=== PATIENT | female | born 1975 | race Hispanic/Latino ===

== ENCOUNTER 2017-01-05 09:55 | Emergency (ER) | payer MEDICAID ==
[2017-01-05 09:56] VITALS: BMI 24.0
[2017-01-05 10:05] VITALS: BP 137/86; PULSE 87; RESP 20; TEMP 98.7; O2SAT 96
--- NOTE | 2017-01-05 10:24 | ED PDOC ---
Arrival/HPI - General Chief Complaint: Substance Abuse Time Seen by Provider: 01/05/17 10:16 Historian: Patient - History of Present Illness Narrative History of Present Illness (Text): 01/05/17 10:25 41yr old female presents today brought in by ambulance after police were concerned for heroin use. pt states she used heroin 8hours ago. denies recent use. denies headaches, dizziness, weakness, cp or sob. denies abdominal pain. no fever/chills. pt states she feels fine and doesnt need to be here. Time/Duration: Prior to Arrival Past Medical History - Provider Review Nursing Documentation Reviewed: Yes - Travel History Have you recently traveled outside [place] w/in the past 3 mons?: No - Infectious Disease Hx of Infectious Diseases: None - Tetanus Immunization Tetanus Immunization: Unknown - Cardiac Hx Cardiac Disorders: No Hx Hypertension: No - Pulmonary Hx Respiratory Disorders: No Hx Tuberculosis: No - Neurological Hx Seizures: No - HEENT Hx HEENT Disorder: No - Renal Hx Renal Disorder: No - Endocrine/Metabolic Hx Endocrine Disorders: No - Hematological/Oncological Hx Blood Disorders: Yes Hx Hepatitis C: Yes (HEP. C+) - Integumentary Hx Dermatological Disorder: Yes Other/Comment: multiple red pathces throughout her body. - Musculoskeletal/Rheumatological Hx Musculoskeletal Disorders: No Hx Falls: No - Gastrointestinal Hx Gastrointestinal Disorders: No - Genitourinary/Gynecological Hx Sexually Transmitted Diseases: No - Psychiatric Hx Psychophysiologic Disorder: Yes Hx Anxiety: Yes Hx Bipolar Disorder: Yes Hx Substance Use: Yes - Surgical History Hx Valve Replacement: No - Anesthesia Hx Anesthesia: Yes Hx Anesthesia Reactions: No Hx Malignant Hyperthermia: No Family/Social History - Physician Review Nursing Documentation Reviewed: Yes Family/Social History: Unknown Family HX Smoking Status: Heavy Smoker > 10 Cigarettes Daily Hx Alcohol Use: Yes Hx Substance Use: Yes Substance used: HEROIN, COCAINE, XANAX Allergies/Home Meds Allergies/Adverse Reactions: Allergies No Known Allergies Allergy (Verified 01/05/17 10:05) Home Medications: Home Meds Medication Instructions Recorded Confirmed Unobtainable 01/05/17 01/05/17 Review of Systems - Review of Systems Constitutional: absent: Fatigue, Fevers Respiratory: absent: SOB, Cough Cardiovascular: absent: Chest Pain, Palpitations Gastrointestinal: absent: Abdominal Pain, Nausea, Vomiting Musculoskeletal: absent: Arthralgias Skin: absent: Rash, Pruritis Neurological: absent: Headache, Dizziness Psychiatric: absent: Anxiety, Depression, Suicidal Ideation Physical Exam Vital Signs Reviewed: Yes Vital Signs Temp Pulse Resp BP Pulse Ox 01/05/17 09:56 98.7 F 87 20 137/86 96 Temperature: Afebrile Blood Pressure: Normal Pulse: Regular Respiratory Rate: Normal Appearance: Positive for: Well-Appearing, Non-Toxic, Comfortable Pain Distress: None Mental Status: Positive for: Alert and Oriented X 3 - Systems Exam Head: Present: Atraumatic Mouth: Present: Moist Mucous Membranes Neck: Present: Normal Range of Motion Respiratory/Chest: Present: Clear to Auscultation Cardiovascular: Present: Regular Rate and Rhythm Abdomen: No: Tenderness, Rebound, Guarding Upper Extremity: Present: Normal ROM Lower Extremity: Present: Normal ROM Neurological: Present: GCS=15, Speech Normal, Gait Normal Skin: Present: Warm, Dry, Rashes (multiple tract medrano noted on both arms without erythema, edema, or abscess) Psychiatric: Present: Alert, Oriented x 3 Medical Decision Making ED Course and Treatment: 01/05/17 10:21 pt brought in by police for concern for heroin use. pt alert oriented, ambulating with steady gait. no distress. refusing any testing/further evaluation. vitals stable. pt states she is going to the doctor today. denies any complaints. admits to using heroin 8 hours ago. Denies recent use. pt ambulating with steady gait; no distress. alert and oriented. no signs of intoxication. pt with hx of DM refusing fingerstick. Patient has been advised to not leave the emergency room but has decided to go AGAINST MEDICAL ADVICE. The patient possesses capacity to make decisions and has voiced understanding to all my warnings of potential worsening of the condition for which medical care was sought. I have discussed all known and potential risks and consequences to the patient leaving AGAINST MEDICAL ADVICE. Patient is leaving against medical advise. AMA form signed. witness by REYNALDO Delgado. case discussed with dr. denson. impression: opiate dependence return if you wish to continue your care. f/u with pmd Disposition/Present on Arrival - Present on Arrival Any Indicators Present on Arrival: No History of DVT/PE: No History of Uncontrolled Diabetes: No Urinary Catheter: No History of Decub. Ulcer: No History Surgical Site Infection Following: None - Disposition Have Diagnosis and Disposition been Completed?: Yes Diagnosis: Opiate dependence Disposition: AGAINST MEDICAL ADVICE Disposition Time: 10:21 Patient Plan: Other (AMA) Condition: FAIR Additional Instructions: return if you wish to continue your care Referrals: Sonia Byers, [Primary Care Provider] - Follow up with primary Forms: [employer] (Gambian)
== END 2017-01-05 10:28 | disposition left against medical advice (07) ==
LOC: ED 09:55
DX: F11.20 Opioid dependence, uncomplicated (principal)

== ENCOUNTER 2017-02-26 17:55 | Emergency (ER) | payer MEDICAID ==
[2017-02-26 18:08] VITALS: BP 126/84; PULSE 100; RESP 20; TEMP 98.8; O2SAT 99; BMI 25.0
--- NOTE | 2017-02-26 19:09 | ED PDOC ---
Arrival/HPI - General Chief Complaint: Psychiatric Evaluation Time Seen by Provider: 02/26/17 18:09 Historian: Patient - History of Present Illness Narrative History of Present Illness (Text): 02/26/17 19:06 42 yo F presents for psychiatric evaluation after having a verbal disagreement with her father, who then called the police on her. Patient reports no complaints at this time. Patient does admit that she was recently admitted to rehabilitation center for detox of narcotic abuse for 6 days and was recently discharged yesterday. Other psychiatric symptoms: (-) depression, (-) anxiety, ( -) hallucinations, (-) suicidal ideation, (-) homicidal ideation. Otherwise: (- ) trauma, (-) fever, (-)headache, (-) dyspnea, (-) vomiting. Past Medical History - Provider Review Nursing Documentation Reviewed: Yes - Infectious Disease Hx of Infectious Diseases: None - Tetanus Immunization Tetanus Immunization: Unknown - Cardiac Hx Cardiac Disorders: No Hx Hypertension: No - Pulmonary Hx Respiratory Disorders: No Hx Tuberculosis: No - Neurological Hx Neurological Disorder: No Hx Seizures: No Hx Transient Ischemic Attacks (TIA): No - HEENT Hx HEENT Disorder: No - Renal Hx Renal Disorder: No - Endocrine/Metabolic Hx Endocrine Disorders: No - Hematological/Oncological Hx Blood Disorders: No - Integumentary Hx Dermatological Disorder: Yes Other/Comment: Multiple red pathces throughout her body. - Musculoskeletal/Rheumatological Hx Musculoskeletal Disorders: No Hx Falls: No - Gastrointestinal Hx Gastrointestinal Disorders: No - Genitourinary/Gynecological Hx Genitourinary Disorders: No Hx Sexually Transmitted Diseases: No - Psychiatric Hx Anxiety: Yes Hx Bipolar Disorder: Yes Hx Depression: Yes Hx Substance Use: Yes - Surgical History Hx Valve Replacement: No - Anesthesia Hx Anesthesia: Yes Hx Anesthesia Reactions: No Hx Malignant Hyperthermia: No Family/Social History - Physician Review Nursing Documentation Reviewed: Yes Family/Social History: No Known Family HX Smoking Status: Heavy Smoker > 10 Cigarettes Daily Hx Alcohol Use: Yes Hx Substance Use: Yes Substance used: HEROIN, COCAINE, XANAX Allergies/Home Meds Allergies/Adverse Reactions: Allergies No Known Allergies Allergy (Verified 02/19/17 17:42) Review of Systems - Review of Systems Constitutional: Normal. absent: Fatigue, Weight Change, Fevers Respiratory: Normal. absent: SOB, Cough, Sputum Cardiovascular: Normal. absent: Chest Pain, Palpitations, Edema Gastrointestinal: Normal. absent: Abdominal Pain, Nausea, Vomiting Musculoskeletal: Normal. absent: Arthralgias, Back Pain, Neck Pain Skin: Normal. absent: Rash, Pruritis, Skin Lesions Neurological: Normal. absent: Headache, Dizziness, Focal Weakness Psychiatric: Normal, Other (h/o narcotic abuse). absent: Anxiety, Depression, Suicidal Ideation Physical Exam - Physical Exam Narrative Physical Exam (Text): 02/26/17 19:10 GENERAL APPEARANCE: Patient is awake, alert, oriented x 3, in no acute distress. SKIN: Warm, dry; (-) cyanosis. HEAD: (-) scalp swelling, (-) scalp tenderness. EYES: (-) conjunctival pallor, (-) scleral icterus, (-) nystagmus. ENMT: Mucous membranes moist. Airway patent: (-) stridor. NECK: (-) tenderness, (-) stiffness, (-) lymphadenopathy. CHEST AND RESPIRATORY: (-) rales, (-) rhonchi, (-) wheezes; breath sounds equal. ABDOMEN: Soft, (-) distention, (-) tenderness, (-) guarding. NEURO AND PSYCH: Mental status as above. Affect: normal. Memory: Intact. infant childcare provider: Pupils equal and reactive; EOMI; (-) facial asymmetry; tongue and uvula midline. Strength and DTRs symmetric. Vital Signs Temp Pulse Resp BP Pulse Ox 02/26/17 18:01 98.8 F 100 H 20 126/84 99 Medical Decision Making ED Course and Treatment: 02/26/17 19:10 42 yo F presents for psychiatric evaluation after having a verbal disagreement with her father, who then called the police on her. Patient reports no complaints at this time. Plan: -- Labs -- IV -- Urinalysis -- EKG -- CXR -- One to one watch -- Reassess and disposition -- PES evaluation PES called to evaluate the patient. Patient seen and evaluated by PES. As per PES the patient is cleared for outpatient f/u, recommends no further treatment in the ER. EKG : NSR at 62 bpm, (-) acute ST changes, as read by [facility]. Lab & urine results, and CXR is still pending. However the patient is refusing to wait for the results, states that she wants to leave now and will not wait for any further result or diagnostic testing. States that she has no complaints. She remains awake, alert and oriented x3, in no distress. Patient refuses to wait for results and further testing in the ER. Patient informed of the reasons for the following and planned treatment, which patient understands, however still refuses. Patient informed of the risk and benefits of treatment. Informed that the risk could include worsening of current conditions, undiagnosed conditions, disability or even . Patient understands the following risk and the benefits of treatment. Patient has the capacity to make decisions, was cleared by PES and still refuses treatment by RN , PA and ER MD. Patient encouraged to return to the ER at any time and to follow up with pmd. - RAD Interpretation Radiology Orders: 02/26/17 18:59 CHEST PORTABLE [RAD] Stat - PA / CQ DEVELOPER / Resident Statement MD/DO has reviewed & agrees with the documentation as recorded. Disposition/Present on Arrival - Present on Arrival Any Indicators Present on Arrival: No History of DVT/PE: No History of Uncontrolled Diabetes: No Urinary Catheter: No History of Decub. Ulcer: No History Surgical Site Infection Following: None - Disposition Have Diagnosis and Disposition been Completed?: Yes Diagnosis: Agitation Disposition: AGAINST MEDICAL ADVICE Disposition Time: 19:55 Patient Plan: Other (Pt d/c and cleared by [facility], will leave AMA, as her labs and CXR results are still pending) Condition: STABLE Discharge Instructions (ExitCare): Opioid Withdrawal (ED) Print Language: EMIRATI Referrals: Kathleen Verdin MD [Primary Care Provider] - Follow up with primary Forms: [employer] (Azeri)
[2017-02-26 20:32] LABS: BASO # 0.02 K/mm3 (0.0-2.0); BASO % 0.2 % (0.0-3.0); EOS # 0.1 (0.0-0.7); EOS % 1.2 % (1.5-5.0); GRAN # 7.66 (1.4-6.5); GRAN % 66.5 % (50.0-68.0); HEMATOCRIT 34.4 % (36.0-48.0); LYMPH % 25.8 % (22.0-35.0); MEAN CELL VOLUME 87.1 fl (80.0-105.0); MEAN CORPUSCULAR HEMOGLOBIN 27.3 pg (25.0-35.0); MEAN CORPUSCULAR HGB CONC 31.4 g/dl (31.0-37.0); MEAN PLATELET VOLUME 9.6 fl (7.0-11.0); MONO # 0.7 (0.1-0.6); MONO % 6.3 % (1.0-6.0); RED CELL DISTRIBUTION WIDTH 14.4 % (11.5-14.5); WHITE BLOOD COUNT 11.5 10^3/ul (4.5-11.0)
[2017-02-26 20:42] LABS: ALB/GLOB RATIO 1.1 (1.1-1.8); ALKALINE PHOSPHATASE 76 U/L (38-126); ALT/SGPT 47 U/L (7-56); AST/SGOT 42 U/L (14-36); BILIRUBIN,TOTAL 0.3 mg/dL (0.2-1.3); BLOOD UREA NITROGEN 21 mg/dL (7-21); CALCIUM 9.4 mg/dL (8.4-10.5); CARBON DIOXIDE 34 mmol/L (21-33); CHLORIDE 101 mmol/L (98-107); GFR AFRICAN-AMERICAN > 60; GLUCOSE,RANDOM 91 mg/dL (70-110); POTASSIUM 4.6 mmol/L (3.6-5.0); SODIUM 142 mmol/L (132-148); TOTAL PROTEIN 7.3 g/dL (5.8-8.3)
--- NOTE | 2017-02-27 19:46 | CARD ---
APPROVED REPORT EKG Measurement Heart [id number] <Conclusion> Normal sinus rhythm with sinus arrhythmia Normal ECG
== END 2017-02-26 20:08 | disposition left against medical advice (07) ==
LOC: ED 17:55
DX: R45.1 Restlessness and agitation (principal)

== ENCOUNTER 2017-12-03 18:20 | Emergency (ER) | payer MEDICAID ==
[2017-12-03 18:20] VITALS: BMI 25.0
[2017-12-03 18:37] VITALS: RESP 18; TEMP 98.8; O2SAT 99
[2017-12-03 19:26] LABS: URINE BILIRUBIN NEGATIVE (NEGATIVE); URINE BLOOD NEGATIVE (NEGATIVE); URINE GLUCOSE (UA) NEGATIVE (NEGATIVE); URINE LEUKOCYTE ESTERASE MODERATE Leu/uL (NEGATIVE); URINE PROTEIN TRACE mg/dL (<30 mg/dL); URINE UROBILINOGEN 0.2 E.U./dL (<1 E.U./dL)
[2017-12-03 19:30] LABS: URINE APPEARANCE CLEAR (CLEAR); URINE COLOR YELLOW (YELLOW)
[2017-12-03] MEDS ORDERED: cefTRIAXone (Rocephin) 250 mg Inj IM STA (19:32)
[2017-12-03 19:37] LABS: URINE WBC 25 - 30 /hpf (0-6)
[2017-12-03 19:38] LABS: URINE BACTERIA MOD (NEG)
--- NOTE | 2017-12-03 19:46 | ED PDOC ---
Arrival/HPI - General Historian: Patient - History of Present Illness Time/Duration: > week (3 weeks) Symptom Onset: Sudden Symptom Course: Unchanged Activities at Onset: Rest, Light Context: Home <Sondra Phoenix - Last Filed: 12/03/17 20:23> <InésPuneet - Last Filed: 12/03/17 21:10> - General Chief Complaint: Female Genitourinary Time Seen by Provider: 12/03/17 18:38 - History of Present Illness Narrative History of Present Illness (Text): 12/03/17 19:43 A 42 year old female presents to the emergency department with complaint of lower abdominal/pelvic pain and yellow vaginal discharge for approximately 3 weeks. Pt states that she thinks her partner is cheating on her. pt states that she has noticed a drastic increase in the amount of vaginal discharge that the patient is having. The patient notes that the last time she had sexual intercourse was 2 weeks ago with her partner. She notes that she has a history of bacterial infections and has been given antibiotics by her PMD approx 2 weeks ago. She states that she has been experiencing dysuria and vaginal itchiness. The patient denies fevers, chills, headache, dizziness, chest pain, shortness of breath, dyspnea on exertion, cough, nausea, vomiting, diarrhea, neck pain, urinary/bowel changes, or any other complaint. PMD: Dr. Flower (Sondra Phoenix) Past Medical History - Provider Review Nursing Documentation Reviewed: Yes - Travel History Have you recently traveled outside [place] w/in the past 3 mons?: No - Infectious Disease Hx of Infectious Diseases: None - Tetanus Immunization Tetanus Immunization: Unknown - Cardiac Hx Cardiac Disorders: No - Pulmonary Hx Respiratory Disorders: No - Neurological Hx Neurological Disorder: No - HEENT Hx HEENT Disorder: No - Renal Hx Renal Disorder: No - Endocrine/Metabolic Hx Endocrine Disorders: No - Hematological/Oncological Hx Hepatitis C: Yes - Integumentary Hx Dermatological Disorder: Yes Other/Comment: Multiple red pathces throughout her body. - Musculoskeletal/Rheumatological Hx Musculoskeletal Disorders: No - Gastrointestinal Hx Gastrointestinal Disorders: No - Genitourinary/Gynecological Hx Genitourinary Disorders: No - Psychiatric Hx Anxiety: Yes Hx Bipolar Disorder: Yes Hx Depression: Yes Hx Substance Use: Yes - Surgical History Hx Valve Replacement: No - Anesthesia Hx Anesthesia: Yes Hx Anesthesia Reactions: No Hx Malignant Hyperthermia: No <Sondra Phoenix Gio - Last Filed: 12/03/17 20:23> Family/Social History - Physician Review Nursing Documentation Reviewed: Yes Family/Social History: Unknown Family HX Smoking Status: Heavy Smoker > 10 Cigarettes Daily Hx Alcohol Use: Yes Hx Substance Use: Yes Substance used: HEROIN, COCAINE, XANAX <Alvarez Phoenixriley Powers - Last Filed: 12/03/17 20:23> Allergies/Home Meds <LizettSondra T - Last Filed: 12/03/17 20:23> <Puneet Hu - Last Filed: 12/03/17 21:10> Allergies/Adverse Reactions: Allergies No Known Allergies Allergy (Verified 12/03/17 18:37) Home Medications: Home Meds Medication Instructions Recorded Confirmed Clonazepam [Klonopin] 2 mg PO DAILY 12/03/17 12/03/17 Zolpidem [Ambien] 1 tab PO HS 12/03/17 12/03/17 Review of Systems - Physician Review All systems were reviewed & negative as marked: Yes - Review of Systems Constitutional: absent: Fatigue, Fevers, Night Sweats Respiratory: absent: SOB, Cough Cardiovascular: absent: Chest Pain, DAY Gastrointestinal: Abdominal Pain (Lower abdominal pain ). absent: Stool Changes , Diarrhea, Nausea, Vomiting, Appetite Changes, Hematochezia Genitourinary Female: Dysuria, Vaginal Discharge (Yellow). absent: Frequency, Hematuria, Urine Output Changes Musculoskeletal: Back Pain. absent: Neck Pain Skin: absent: Rash, Pruritis Neurological: absent: Headache, Dizziness Psychiatric: absent: Anxiety, Depression <LizettAlvarezSondra T - Last Filed: 12/03/17 20:23> Physical Exam Vital Signs Reviewed: Yes Temperature: Afebrile Blood Pressure: Normal Pulse: Regular Respiratory Rate: Normal Appearance: Positive for: Well-Appearing, Non-Toxic, Comfortable Pain Distress: None Mental Status: Positive for: Alert and Oriented X 3 - Systems Exam Head: Present: Atraumatic, Normocephalic Mouth: Present: Moist Mucous Membranes Neck: Present: Normal Range of Motion Respiratory/Chest: Present: Clear to Auscultation, Good Air Exchange. No: Respiratory Distress, Accessory Muscle Use Cardiovascular: Present: Regular Rate and Rhythm, Normal S1, S2. No: Murmurs Abdomen: Present: Tenderness (minimal lower pelvic tenderness). No: Distention , Peritoneal Signs, Rebound, Guarding Genitourinary/Pelvic Exam: Present: Normal External Genitalia, Vaginal Discharge (yellow), Cervical os Closed, Other (chaparoned by Flora Baldwin). No: Vaginal Bleeding, Vaginal Lesions, Adenexal Tenderness, Adenexal Mass, Cervical Motion Tendernes Back: Present: Normal Inspection Upper Extremity: Present: Normal Inspection. No: Cyanosis, Edema Lower Extremity: Present: Normal Inspection. No: Edema Neurological: Present: GCS=15, Speech Normal Skin: Present: Warm, Dry, Normal Color. No: Rashes Psychiatric: Present: Alert, Oriented x 3 <Sondra Phoenix - Last Filed: 12/03/17 20:23> Vital Signs Temp Pulse Resp BP Pulse Ox 12/03/17 18:35 98.8 F 86 18 113/76 99 Medical Decision Making - Lab Interpretations I have reviewed the lab results: Yes <Sondra Phoenix - Last Filed: 12/03/17 20:23> <Puneet Hu - Last Filed: 12/03/17 21:10> ED Course and Treatment: 12/03/17 19:48 Impression: A 42 year old female presents to the emergency department with a complaint of abdominal pain and yellow vaginal discharge. Plan: -- Transvaginal Ultrasound -- UA/Urine Culture -- Chlamydia/GC Culture -- Labs Progress Notes: pt is non toxic well appearing; no distress. cbc; wnl cmp; wnl UA; + moderate leukocytes + bacteria. urine culture pending pt was noted to have yellow vaginal discharge. will treat with rocephin and zithromax for gc/chlamydia; cultures pending. transvaginal US: 12/03/17 20:51 case signed out to dr. hu pending US results. impression; uti, vaginal discharge, pelvic pain motrin every 6 hours as needed for pain keflex; 1 capsule twice daily x 7 days increase fluids Follow up with the YARD SWITCH OPERATOR within the next 2 days Follow up with the Primary care physician within the next 2 days return immediately if symptoms worsen,persist or if new symptoms develop. (Sondra Phoenix) - Lab Interpretations Lab Results: 12/03/17 19:40 12/03/17 19:40 Lab Results 12/03/17 19:40: WBC 8.9 D, RBC 4.16, Hgb 11.3 L, Hct 35.4 L, MCV 85.1, MCH 27.2 , MCHC 31.9, RDW 13.8, Plt Count 250, MPV 8.8, Gran % 52.9, Lymph % (Auto) 38.4 H, [place] % (Auto) 7.0 H, Eos % (Auto) 1.4 L, Baso % (Auto) 0.3, Gran # 4.69, Lymph # (Auto) 3.4, [place] # (Auto) 0.6, Eos # (Auto) 0.1, Baso # (Auto) 0.03 12/03/17 19:40: Sodium 142, Potassium 4.0, Chloride 102, Carbon Dioxide 29, Anion Gap 15, BUN 12, Creatinine 0.6 L, Est GFR ( Amer) > 60, Est GFR ( Non-Af Amer) > 60, Random Glucose 83, Calcium 9.1, Total Bilirubin 0.2, AST 39 H , ALT 32, Alkaline Phosphatase 71, Total Protein 7.7, Albumin 4.1, Globulin 3.7 , Albumin/Globulin Ratio 1.1 12/03/17 18:49: Urine Color Yellow, Urine Appearance Clear, Urine pH 6.0, Ur Specific [place] >= 1.030, Urine Protein Trace H, Urine Glucose (UA) Negative, Urine Ketones Negative, Urine Blood Negative, Urine Nitrate Negative, Urine Bilirubin Negative, Urine Urobilinogen 0.2, Ur Leukocyte Esterase Moderate H, Urine RBC 2 - 5, Urine WBC 25 - 30, Ur Epithelial Cells 10 - 12, Urine Bacteria Mod - RAD Interpretation Radiology Orders: 12/03/17 19:31 TRANSVAGINAL [US] Stat - Medication Orders Current Medication Orders: Discontinued Medications Azithromycin (Zithromax) 1,000 mg PO STAT STA PRN Reason: Protocol Stop: 12/03/17 19:33 Last Admin: 12/03/17 20:20 Dose: 1,000 mg Ceftriaxone Sodium (Rocephin) 250 mg IM STAT STA PRN Reason: Protocol Stop: 12/03/17 19:33 Last Admin: 12/03/17 20:21 Dose: 250 mg IM Administration Charges Document 12/03/17 20:21 LA (Rec: 12/03/17 20:21 LA [id number]) Injection Site MAR Injection Site Left Arm Charges for Administration # of IM Administrations 1 Ketorolac Tromethamine (Toradol) 60 mg IM STAT STA Stop: 12/03/17 20:24 Last Admin: 12/03/17 20:33 Dose: 60 mg MAR Pain Assessment Document 12/03/17 20:33 LA (Rec: 12/03/17 20:34 LA [id number]) Pain Reassessment Is this a pain reassessment? No Sleep Is patient sleeping during reassessment? No Presence of Pain Presence of Pain Yes Pain Scale Used Pain Scale Used Numeric Location Pain Location Body Site Abdomen Description Intensity of Pain at present 5 IM Administration Charges Document 12/03/17 20:33 LA (Rec: 12/03/17 20:34 LA [id number]) Injection Site MAR Injection Site Right Gluteus Lavon Charges for Administration # of IM Administrations 1 - Scribe Statement The provider has reviewed the documentation as recorded by the Scribe <Sondra Phoenix - Last Filed: 12/03/17 20:23> - PA / SALES SUPPORT CONSULTANT / Resident Statement / has reviewed & agrees with the documentation as recorded. <Puneet Hu - Last Filed: 12/03/17 21:10> - Scribe Statement Flora Lazaro Provider Scribe Attestation: All medical record entries made by the Scribe were at my direction and personally dictated by me. I have reviewed the chart and agree that the record accurately reflects my personal performance of the history, physical exam, medical decision making, and the department course for this patient. I have also personally directed, reviewed, and agree with the discharge instructions and disposition. (Sondra Phoenix) Disposition/Present on Arrival - Present on Arrival Any Indicators Present on Arrival: No History of DVT/PE: No History of Uncontrolled Diabetes: No Urinary Catheter: No History of Decub. Ulcer: No History Surgical Site Infection Following: None - Disposition Have Diagnosis and Disposition been Completed?: Yes Disposition Time: 20:14 Patient Plan: Discharge <Sondra Phoenix - Last Filed: 12/03/17 20:23> <Puneet Hu - Last Filed: 12/03/17 21:10> - Disposition Diagnosis: Urinary tract infection, Vaginal discharge, Pelvic pain Disposition: HOME/ ROUTINE Patient Problems: Current Active Problems Problem Status Onset Pelvic pain Acute Urinary tract infection Acute Vaginal discharge Acute Condition: GOOD Discharge Instructions (ExitCare): Urinary Tract Infection, Adult (DC), Vaginal Discharge in Adults Additional Instructions: motrin every 6 hours as needed for pain keflex; 1 capsule twice daily x 7 days increase fluids Follow up with the YARD SWITCH OPERATOR within the next 2 days Follow up with the Primary care physician within the next 2 days return immediately if symptoms worsen,persist or if new symptoms develop. Prescriptions: Cephalexin [Keflex] 500 mg PO BID #14 capsule Ibuprofen [Motrin] 600 mg PO Q6H PRN #20 tab PRN Reason: pain/fever reduction Referrals: Mallika Spencer MD [Medical Doctor] - [facility] [Outside] - Follow up with primary [facility] [Outside] - Follow up with primary Silke Ross MD [Staff Provider] - Follow up with primary Forms: [employer] (Ukrainian), WORK NOTE
[2017-12-03 20:01] LABS: BASO # 0.03 K/mm3 (0.0-2.0); BASO % 0.3 % (0.0-3.0); EOS # 0.1 (0.0-0.7); EOS % 1.4 % (1.5-5.0); GRAN # 4.69 (1.4-6.5); GRAN % 52.9 % (50.0-68.0); HEMOGLOBIN 11.3 g/dL (12.0-16.0); LYMPH # 3.4 (1.2-3.4); LYMPH % 38.4 % (22.0-35.0); MEAN CELL VOLUME 85.1 fl (80.0-105.0); MEAN CORPUSCULAR HEMOGLOBIN 27.2 pg (25.0-35.0); MEAN CORPUSCULAR HGB CONC 31.9 g/dl (31.0-37.0); MEAN PLATELET VOLUME 8.8 fl (7.0-11.0); MONO # 0.6 (0.1-0.6); RBC 4.16 10^6/uL (3.5-6.1); RED CELL DISTRIBUTION WIDTH 13.8 % (11.5-14.5); WHITE BLOOD COUNT 8.9 10^3/ul (4.5-11.0)
[2017-12-03 20:05] LABS: ALB/GLOB RATIO 1.1 (1.1-1.8); ALBUMIN 4.1 g/dL (3.0-4.8); ALT/SGPT 32 U/L (7-56); AST/SGOT 39 U/L (14-36); BLOOD UREA NITROGEN 12 mg/dL (7-21); CALCIUM 9.1 mg/dL (8.4-10.5); GFR AFRICAN-AMERICAN > 60; GFR NON-AFRICAN AMERICAN > 60
[2017-12-03 21:18] VITALS: BP 128/76; PULSE 72
--- NOTE | 2017-12-05 10:42 | US ---
Date of service: 12/03/2017 HISTORY: pelvic pain COMPARISON: None available. TECHNIQUE: Transabdominal/transvaginal sonographic evaluation of pelvis performed. FINDINGS: UTERUS: Measures 6.0 x 2.3 x 4.7 cm. Normal in size and appearance. Anteverted No fibroid or other mass lesion seen. ENDOMETRIUM: Measures 6.2 mm in diameter. Unremarkable. CERVIX: No cervical abnormality identified. RIGHT OVARY: Measures 3.0 x 1.4 x 2.9 cm. No solid mass. Normal flow. There are two small cysts present within the right ovary the 1st measuring 1.4 cm in greatest dimension and the 2nd measuring 1.3 cm in greatest dimension. LEFT OVARY: Measures 2.7 x 0.8 x 2.0 cm. No solid mass. Normal flow. FREE FLUID: No significant free fluid noted. OTHER FINDINGS: None. IMPRESSION: Two small right ovarian cyst.
== END 2017-12-03 21:18 | disposition home or self-care (01) ==
LOC: ED 18:20
DX: N39.0 Urinary tract infection, site not specified (principal); N89.8 Other specified noninflammatory disorders of vagina; R10.2 Pelvic and perineal pain
CPT/HCPCS: 76830; 80053; 81001; 85025; 87086; 87491; 87591; 96372; 99284; J0696; J1885